=== PATIENT | male | born 1965 | race Caucasian/White ===

== ENCOUNTER → 2023-01-20 | Outpatient (CLI) | payer SELFPAY ==
--- NOTE | 2023-01-20 10:37 | VDLE_ITS ---
Reason For Study: Right leg swelling RIGHT LEFT GSV is normal. CFV is compressible, spontaneous, phasic, CFV is compressible, spontaneous, phasic, competent, and demonstrates normal competent and demonstrates normal augmentation. augmentation. FV prox-mid is partially compressible with bright intraluminal echoes consistent with Chronic DVT. Normal venous flow with augmentation. FV distal is compressible. PopV is partially compressible with bright intraluminal echoes consistent with Chronic DVT. Normal venous flow noted with augmentation. T/P Trunk is partially compressible with bright intraluminal echoes consistent with Chronic DVT. PTV is compressible. RT PerV is compressible. Nonvascularized structure is noted in the right popliteal fossa that measures 1.61 x 4.76 cm. Procedure This is a venous duplex using B-mode, color flow and spectral Doppler. Exam performed in department. Calf veins not well visualized. A preliminary report was called and/or faxed to Dr. Molina. VL/Venous Duplex US, Unilateral Interpretation Summary Chronic venous changes are noted in the right femoral vein, popliteal vein, and tibio-peroneal trunk, which demonstrate venous flow, partial compressibility, and intraluminal echogenicity. The right common femoral vein, posterior tibial vein, and peroneal vein are patent and compressible. The right great saphenous vein appears patent and compressible segmentally. The lef t common femoral vein is patent and compressible . A non-vascular, hypoechoic structure is noted in t he right popliteal space, measuring 1.61 cm x 4.76 cm. This probably represents a popliteal cyst. Clinical correlation is advised. Ordering Physician: Jose Molina Referring Physician: Jose Molina Performed By: Urszula Overton RVT
== END | disposition home or self-care (01) ==
LOC: CVS 10:33
PROVIDERS: PCP Family Medicine; Referring Provider Family Medicine; Visit Provider Family Medicine
DX: M79.89 Other specified soft tissue disorders (principal); Z86.718 Personal history of other venous thrombosis and embolism
CPT/HCPCS: 93971